=== PATIENT | female | born 1960 | race Caucasian/White ===

== ENCOUNTER 2016-12-25 18:22 | Emergency (ER) | payer BC ==
[~2016-12-25] VITALS: Ht 165.1 cm; Wt 122.3 kg
[2016-12-26] MEDS ORDERED: PERCOCET 5/31 TABLET PO (00:34)
[2016-12-26 01:15] VITALS: BP 139/78
== END 2016-12-26 01:16 | disposition home or self-care (01) ==
LOC: EME 18:22
DX: S22.31XA Fracture of one rib, right side, initial encounter for closed fracture (principal); W10.9XXA Fall (on) (from) unspecified stairs and steps, initial encounter; E78.5 Hyperlipidemia, unspecified; F31.9 Bipolar disorder, unspecified; Z87.891 Personal history of nicotine dependence
CPT/HCPCS: 71250; 99281; 99284